=== PATIENT | female | born 1970 | race Caucasian/White ===

== ENCOUNTER 2016-07-05 22:50 | Emergency (ER) | payer OTHER ==
[~2016-07-05] VITALS: Ht 157.5 cm; Wt 97.2 kg
[~2016-07-05 22:50] MED LIST: PROT40TA PO; SUCR1TAB PO
[2016-07-05 22:56] VITALS: BP 163/127; PULSE 122; RESP 18; TEMP 99.6; O2SAT 100
[2016-07-05] MEDS ORDERED: SODIUM CHLOR 0.9% 1000 ML INJ 1,000 ML IV SCH (23:10)
[2016-07-05] MEDS ORDERED: SODIUM CHLORIDE 0.9% FLUSH 5 ML FLUSH IVF PRN (23:15)
[2016-07-05] MEDS ORDERED: ASPIRIN 325 MG TAB PO ONE (23:15)
[2016-07-05] MEDS ORDERED: EPINEPHrine HCL (1:1000) 1 MG/ML VIAL IM ONE (23:15)
[2016-07-05] MEDS ORDERED: methylPREDNISolone SOD SUCC 125 MG/2 ML VIAL IVP ONE (23:15)
[2016-07-05] MEDS ORDERED: diphenhydrAMINE HCL 50 MG/ML VIAL IVP ONE (23:15)
--- NOTE | 2016-07-05 23:21 | PD ---
HPI Chief Complaint: Allergic/Adverse Reaction Time Seen by Provider: 22:59 Travel History International Travel<30 days: No Contact w/Intl Traveler<30days: No Traveled to known affect area: No History of Present Illness HPI 46yo F with lupus presents to the ED with c/o throat pain, itching in throat, sensation of throat and tongue swelling since this morning. Pt also with burning, midsternal chest pain that started this morning. States it feels like indigestion and not associated with any sob, n/v, abdominal pain, weakness or numbness. Denies any fever. Pt was started on plaquenil 2 weeks ago and about 1 week ago started developing erythematous, itchy rash on chest. Pt states she stopped taking the plaquenil 4 days ago. However, the rash has not resolved and spreading to her back. Pt also has generalized itching and erythema in abdomen. Did not take any medication at home for this. PFSH Past Medical History Autoimmune Disease: Yes (lupus, ra) Anxiety: Yes Diminished Hearing: No Menopausal: Yes Past Surgical History Section: Yes Hysterectomy: Yes (2009) Social History Alcohol Use: No Tobacco Use: Yes (09/02 PPD) Substance Use: No Allergies-Medications (Allergen,Severity, Reaction): Coded Allergies: Plaquenil (Verified Allergy, Severe, Rash, 07/06/16) Reported Meds & Prescriptions Reported Meds & Active Scripts Active Epinephrine Inj (Epinephrine) 0.3 Mg/0.3 Ml Pfpen 0.3 Mg IM ONCE PRN Deltasone (Prednisone) 20 Mg Tab 20 Mg PO BID 5 Days Diphenhydramine (Diphenhydramine HCl) 25 Mg Cap 25 Mg PO Q6H PRN 5 Days Review of Systems Except as stated in HPI: all other systems reviewed are Neg Physical Exam Narrative GENERAL: 46yo anxious appearing F. SKIN: Erythematous mid chest with erythematous papules that do not appear to be urticarial. Patches of erythema on right abdomen and left back that is pruritic. HEAD: Atraumatic. Normocephalic. EYES: Pupils equal and round. No scleral icterus. No injection or drainage. ENT: Throat: No uvula swelling or exudate on tonsils. No tongue swelling. + Bilateral anterior cervical lymph nodes, not ttp. Mouth: No mucosal involvement or lesion. Ears: TM wnl bilaterally. Mildly erythematous. NECK: Trachea midline. No JVD. CARDIOVASCULAR: Regular rate and rhythm. No murmur appreciated. RESPIRATORY: No accessory muscle use. Clear to auscultation. Breath sounds equal bilaterally. GASTROINTESTINAL: Abdomen soft, non-tender, nondistended. No rebound tenderness or guarding. MUSCULOSKELETAL: No obvious deformities. No clubbing. No cyanosis. No edema. NEUROLOGICAL: Awake and alert. No obvious cranial nerve deficits. Motor grossly within normal limits. Normal speech. PSYCHIATRIC: Appropriate mood and affect; insight and judgment normal. Data Data Last Documented VS Vital Signs Date Time Temp Pulse Resp B/P Pulse Ox O2 Delivery O2 Flow Rate FiO2 07/06/16 03:02 99 16 99/68 07/06/16 01:15 Room Air 07/06/16 01:15 99 07/05/16 22:56 99.6 Orders Basic Metabolic Panel (Bmp) (07/05/16 23:10) Complete Blood Count With Diff (07/05/16 23:10) Ecg Monitoring (07/05/16 23:10) Iv Access Insert/Monitor (07/05/16 23:10) Oximetry (07/05/16 23:10) Diphenhydramine Inj (Benadryl Inj) (07/05/16 23:15) Methylprednisolone So Succ Inj (Solumedr (07/05/16 23:15) Sodium Chlor 0.9% 1000 Ml Inj (Ns 1000 M (07/05/16 23:10) Sodium Chloride 0.9% Flush (Ns Flush) (07/05/16 23:15) Epinephrine (1:1000) Inj (Adrenalin (1:1 (07/05/16 23:15) Troponin I (07/05/16 23:10) Chest, Single Ap (07/05/16 ) Aspirin (Aspirin) (07/05/16 23:15) Electrocardiogram (07/05/16 ) Sodium Chlor 0.9% 1000 Ml Inj (Ns 1000 M (07/06/16 00:30) Labs Laboratory Tests Test 07/05/16 23:38 White Blood Count 11.1 TH/MM3 Red Blood Count 4.60 MIL/MM3 Hemoglobin 13.6 GM/DL Hematocrit 40.0 % Mean Corpuscular Volume 86.9 FL Mean Corpuscular Hemoglobin 29.7 PG Mean Corpuscular Hemoglobin 34.2 % Concent Red Cell Distribution Width 11.9 % Platelet Count 347 TH/MM3 Mean Platelet Volume 8.4 FL Neutrophils (%) (Auto) 78.1 % Lymphocytes (%) (Auto) 15.0 % Monocytes (%) (Auto) 4.3 % Eosinophils (%) (Auto) 0.8 % Basophils (%) (Auto) 1.8 % Neutrophils # (Auto) 8.6 TH/MM3 Lymphocytes # (Auto) 1.7 TH/MM3 Monocytes # (Auto) 0.5 TH/MM3 Eosinophils # (Auto) 0.1 TH/MM3 Basophils # (Auto) 0.2 TH/MM3 CBC Comment DIFF FINAL Differential Comment Sodium Level 138 MEQ/L Potassium Level 3.6 MEQ/L Chloride Level 103 MEQ/L Carbon Dioxide Level 24.7 MEQ/L Anion Gap 10 MEQ/L Blood Urea Nitrogen 9 MG/DL Creatinine 0.86 MG/DL Estimat Glomerular Filtration 72 ML/MIN Rate Random Glucose 151 MG/DL Calcium Level 8.7 MG/DL Troponin I LESS THAN 0.02 NG/ML MDM Medical Decision Making Medical Screen Exam Complete: Yes Emergency Medical Condition: Yes Interpretation(s) EKG: Sinus tachycardia at 104bpm. Normal axis. No ST segment elevation or depression. TWI V2. Differential Diagnosis Anaphylaxis vs. drug reaction vs. viral syndrome vs. anxiety Narrative Course 46yo F with pruritic rash after starting plaquenil. However, today with sensation of throat and tongue swelling and itching in throat along with midsternal burning chest pain and rash. Pt immediately placed on continuous cardiac monitoring and is tachycardic in the low 100s. Will treat with epinephrine, diphenhydramine, methylprednisolone,and observe. Pt has history of lupus so will also do CXR and cardiac enzyme. Pt given aspirin 325mg PO. Labs reviewed, mild leukocytosis at 11.1. Troponin negative. CXR normal examination. Pt reevaluated at bedside and states her throat swelling has improved. Pt does not want any medication for throat pain. Pt is speaking in complete sentences and not in respiratory distress. Chest pain has also resolved. Pt receiving IVF and HR is now 103. Pt received epinephrine at 11: 15pm so will observe on search engine optimization specialist for about 6 hours until 5am. Informed pt to inform the nurse and physician if any worsening symptoms. Pt agrees with plan. Instructed pt to follow up with PMD and marketing education teacher as outpatient. Diagnosis Primary Impression: Allergic reaction Qualified Code: T78.40XA - Allergic reaction, initial encounter Patient Instructions: General Instructions Departure Forms: Tests/Procedures Additional Instructions: Please follow up with your PMD in 1-2 days. Please also follow up with your marketing education teacher about using a different medication. Return to the ED if you have worsening symptoms. Med/Other Pt SpecificInfo: Prescription(s) given Scripts Epinephrine Inj 0.3 Mg/0.3 Ml Pfpen0.3 Mg IM ONCE PRN (ALLERGIC REACTION) #1 PEN Ref 0 Prov:Lea Nava DO 07/06/16 Prednisone (Deltasone)20 Mg Tab20 Mg PO BID 5 Days Ref 0 Prov:Lea Nava DO 07/06/16 Diphenhydramine 25 Mg Cap25 Mg PO Q6H PRN (ALLERGIES) 5 Days Ref 0 Prov:Lea Nava DO 07/06/16 Disposition: 01 DISCHARGE HOME Condition: Stable Lea Nava DO Jul 05, 2016 23:21
[2016-07-05 23:35] VITALS: BP 160/94; PULSE 117; RESP 18; O2SAT 100
--- NOTE | 2016-07-05 23:36 | RADHPO ---
EXAM DATE/TIME: 07/05/2016 23:24 [facility] COMPARISON: CHEST SINGLE AP, March 30, 2015, 20:52. INDICATIONS : Chest discomfort, tightness in throat due to allergic reaction. MEDICAL HISTORY : None. SURGICAL HISTORY : None. ENCOUNTER: Initial ACUITY: 1 day PAIN SCORE: 0/10 LOCATION: Bilateral chest FINDINGS: A single view of the chest demonstrates the lungs to be symmetrically aerated without evidence of mas s, infiltrate or effusion. The cardiomediastinal contours are unremarkable. Osseous structures are intact. CONCLUSION: Normal examination. Slava Bai Jr., MD on July 05, 2016 at 23:34 Board Certified Radiologist. This report was verified electronically.
[2016-07-05 23:40] VITALS: O2SAT 99
[2016-07-05 23:41] LABS: AUTOMATED NEUTROPHIL # 8.6 TH/MM3 (1.8-7.7); BASOPHIL # 0.2 TH/MM3 (0-0.2); BASOPHIL % 1.8 % (0.0-2.0); EOSINOPHIL # 0.1 TH/MM3 (0-0.4); EOSINOPHIL % 0.8 % (0.0-4.0); LYMPHOCYTE # 1.7 TH/MM3 (1.0-4.8); MEAN CELL VOLUME 86.9 FL (80.0-100.0); MEAN CORPUSCULAR HEMOGLOBIN 29.7 PG (27.0-34.0); MEAN CORPUSCULAR HGB CONC 34.2 % (32.0-36.0); MONO % 4.3 % (0.0-8.0); NEUT % 78.1 % (16.0-70.0); PLATELET COUNT 347 TH/MM3 (150-450); RED CELL DISTRIBUTION WIDTH 11.9 % (11.6-17.2); WHITE BLOOD COUNT 11.1 TH/MM3 (4.0-11.0)
[2016-07-05 23:43] LABS: HEMO FLAGS DIFF FINAL
[2016-07-05 23:48] LABS: CHLORIDE 103 MEQ/L (98-107); POTASSIUM 3.6 MEQ/L (3.5-5.1); SODIUM (NA) 138 MEQ/L (136-145)
[2016-07-05 23:51] LABS: ANION GAP 10 MEQ/L (5-15); BICARBONATE 24.7 MEQ/L (21.0-32.0); BLOOD UREA NITROGEN 9 MG/DL (7-18)
[2016-07-05 23:54] LABS: GLOMERULAR FILTRATION RATE 72 ML/MIN (>89)
[2016-07-06 00:05] VITALS: BP 141/74; PULSE 103; RESP 18; O2SAT 100
[2016-07-06] MEDS ORDERED: PRED-503 PO (00:11)
[2016-07-06] MEDS ORDERED: DIPH25CA PO (00:11)
[2016-07-06] MEDS ORDERED: EPIN1INJ17 IM (00:11)
[2016-07-06] MEDS ORDERED: SODIUM CHLOR 0.9% 1000 ML INJ 1,000 ML IV ONE (00:30)
[2016-07-06 01:15] VITALS: BP 108/60; PULSE 98; RESP 17; O2SAT 99
[2016-07-06 03:02] VITALS: BP 99/68
--- NOTE | 2016-07-06 07:57 | EKG ---
Date Performed: 07/05/2016 Time Performed: 23:40:58 PTAGE: 46 years EKG: BASELINE ARTIFACT PRESENT. Sinus tachycardia. Ant/septal and lateral T wave changes are non specific Low QRS voltages in precordial leads Borderline ECG NO SIGNIFICANT CHANGE FROM PRIOR ELECTRO CARDIOGRAM. PREVIOUS TRACING : 03/30/2015 20.52 DOCTOR: Davie Richey Interpretating Date/Time 07/06/2016 07:57:24
== END 2016-07-06 03:03 | disposition home or self-care (01) ==
LOC: PHED 22:50
DX: T37.8X5A Adverse effect of other specified systemic anti-infectives and antiparasitics, initial encounter (principal); R21 Rash and other nonspecific skin eruption; T78.3XXA Angioneurotic edema, initial encounter; D72.829 Elevated white blood cell count, unspecified; L53.9 Erythematous condition, unspecified; M32.9 Systemic lupus erythematosus, unspecified; F17.210 Nicotine dependence, cigarettes, uncomplicated; R07.89 Other chest pain; R00.0 Tachycardia, unspecified
CPT/HCPCS: 71010; 80048; 84484; 85025; 93005; 96361; 96372; 96374; 96375; 99285; J0171; J1200; J2930; J7030